=== PATIENT | male | born 1985 | race Caucasian/White ===

== ENCOUNTER 2025-06-01 13:26 | Emergency (ER) | payer OTHER ==
[~2025-06-01] VITALS: Ht 188 cm; Wt 86.2 kg
[~2025-06-01 13:26] MED LIST: B-1100 M1 PO; GABA300 PO
[2025-06-01 14:26] LABS: BASOPHILS ABSOLUTE AUTO 0.06 K/mm3 (0.00-0.23); BASOPHILS PERCENT AUTO 1 % (0-2); EOSINOPHILS ABSOLUTE AUTO 0.08 K/mm3 (0.00-0.68); EOSINOPHILS PERCENT AUTO 1 % (0-6); Hematocrit 49.2 % (37.0-53.0); Hemoglobin 17.2 g/dL (13.5-17.5); IMMATURE GRAN ABSOLUTE AUTO 0.02 K/mm3 (0.00-0.10); IMMATURE GRAN PERCENT AUTO 0 % (0-1); LYMPHOCYTES ABSOLUTE AUTO 1.77 K/mm3 (0.84-5.20); LYMPHOCYTES PERCENT AUTO 21 % (21-46); MONOCYTES ABSOLUTE AUTO 0.90 K/mm3 (0.16-1.47); MONOCYTES PERCENT AUTO 11 % (4-13); Mean Corpuscular HGB Conc 35.0 g/dL (31.5-36.5); Mean Corpuscular Volume 89 fL (80-100); NEUTROPHILS ABSOLUTE AUTO 5.57 K/mm3 (1.96-9.15); NEUTROPHILS PERCENT AUTO 66 % (41-73); NRBC ABSOLUTE 0.00 K/mm3 (0.00-0.02); NRBC Auto 0.0 /100 WBC (0.0-0.2); Platelet Count 192 K/mm3 (150-400); RDW Coefficient Variation 13.3 % (11.7-14.2); RDW Standard Deviation 43.5 fL (35.1-46.3)
[2025-06-01 14:47] LABS: Alanine Aminotransfer (ALT/SGP 158.0 U/L (12-78); Albumin, Blood 4.2 g/dL (3.4-5.0); Albumin/Globulin Ratio 1.0 (0.8-1.8); Anion Gap 14.0 mmol/L (3-11); Aspartate Aminotrans (AST/SGOT 185.0 U/L (12-37); Bilirubin, Total 1.7 mg/dL (0.1-1.0); Blood Urea Nitrogen 8.0 mg/dL (8-24); CO2, Blood 22.0 mmol/L (21-32); Calcium, Blood 8.9 mg/dL (8.5-10.1); Chloride, Blood 103.0 mmol/L (98-108); Creatinine, Blood 0.82 mg/dL (0.60-1.20); Ethanol (Alcohol), Blood, Med 294.0 mg/dL; Globulin, Blood 4.2 g/dL (2.2-4.0); Glucose, Blood 115.0 mg/dL (70-99); Potassium, Blood 3.9 mmol/L (3.5-5.5); Sodium, Blood 135.0 mmol/L (136-145); Total Protein, Blood 8.4 g/dL (6.4-8.2)
[2025-06-01] MEDS ORDERED: NS 1,000 ML IV SCH (15:15)
[2025-06-01] MEDS ORDERED: LORazepam 2 MG/ML 1ML Injection IV ONE (15:15)
[2025-06-01] MEDS ORDERED: Multivitamins 1 Tab PO ONE (15:15)
[2025-06-01] MEDS ORDERED: CHLO25 PO (15:57)
[2025-06-01 16:15] VITALS: BP 146/105
[2025-06-01 16:26] LABS: U Amphetamine Screen Not Detected; U Barbituate Screen Not Detected; U Benzodiazapine Screen Not Detected; U Buprenorphine Screen Not Detected; U Cannabinoids Screen Not Detected; U Cocaine Screen Not Detected; U Methadone Screen Not Detected; U Methamphetamine Screen Not Detected; U Opiates Screen Not Detected; U Oxycodone Screen Not Detected; U Phencyclidine Screen Not Detected
[2025-06-02] MEDS ORDERED: QUET25 PO ×2 (00:24)
== END 2025-06-01 16:26 | disposition home or self-care (01) ==
LOC: ER 13:26
PROVIDERS: Physician Assistant
DX: F10.129 Alcohol abuse with intoxication, unspecified (principal); Y90.8 Blood alcohol level of 240 mg/100 ml or more; R74.01 Elevation of levels of liver transaminase levels
CPT/HCPCS: 80053; 80320; 85025; 93005; 93010; A9270; J2060; J7030

== ENCOUNTER 2025-06-01 22:09 | Emergency (ER) | payer OTHER ==
[~2025-06-01] VITALS: Ht 188 cm; Wt 86.2 kg
[~2025-06-01 22:09] MED LIST changes: +CHLO25 PO
[2025-06-01] MEDS ORDERED: NS 1,000 ML IV SCH (23:35)
[2025-06-01] MEDS ORDERED: Ondansetron HCl 2 MG / ML 2ML Vial IV ONE (23:40)
[2025-06-02] MEDS ORDERED: QUET25 PO ×2 (00:24→00:46)
[2025-06-02 01:00] VITALS: BP 123/81
== END 2025-06-02 01:13 | disposition home or self-care (01) ==
LOC: ER 22:09
DX: F10.239 Alcohol dependence with withdrawal, unspecified (principal); Z79.899 Other long term (current) drug therapy; Y90.8 Blood alcohol level of 240 mg/100 ml or more; R74.01 Elevation of levels of liver transaminase levels
CPT/HCPCS: 80053; 80320; 85025; 93005; 93010; 96361; 96374; 96375; 96376; 99285-25; A9270; J2060; J2405; J2560; J7030

== ENCOUNTER 2025-06-19 19:49 | Emergency (ER) | payer OTHER ==
[~2025-06-19] VITALS: Ht 188 cm; Wt 86.2 kg
[~2025-06-19 19:49] MED LIST changes: +QUET25 PO
[2025-06-19 21:04] LABS: BASOPHILS ABSOLUTE AUTO 0.13 K/mm3 (0.00-0.23); BASOPHILS PERCENT AUTO 2 % (0-2); EOSINOPHILS ABSOLUTE AUTO 0.35 K/mm3 (0.00-0.68); EOSINOPHILS PERCENT AUTO 5 % (0-6); Hematocrit 44.7 % (37.0-53.0); Hemoglobin 15.3 g/dL (13.5-17.5); IMMATURE GRAN ABSOLUTE AUTO 0.13 K/mm3 (0.00-0.10); IMMATURE GRAN PERCENT AUTO 2 % (0-1); LYMPHOCYTES ABSOLUTE AUTO 2.73 K/mm3 (0.84-5.20); LYMPHOCYTES PERCENT AUTO 38 % (21-46); MONOCYTES ABSOLUTE AUTO 0.66 K/mm3 (0.16-1.47); MONOCYTES PERCENT AUTO 9 % (4-13); Mean Corpuscular HGB Conc 34.2 g/dL (31.5-36.5); Mean Corpuscular Volume 91 fL (80-100); NEUTROPHILS ABSOLUTE AUTO 3.13 K/mm3 (1.96-9.15); NEUTROPHILS PERCENT AUTO 44 % (41-73); NRBC ABSOLUTE 0.00 K/mm3 (0.00-0.02); NRBC Auto 0.0 /100 WBC (0.0-0.2); Platelet Count 359 K/mm3 (150-400); RDW Coefficient Variation 15.4 % (11.7-14.2); RDW Standard Deviation 51.8 fL (35.1-46.3)
[2025-06-19 21:17] LABS: Prothrombin Time Results 9.9 Sec (9.7-11.5)
[2025-06-19 21:25] LABS: Alanine Aminotransfer (ALT/SGP 53.0 U/L (12-78); Albumin, Blood 3.7 g/dL (3.4-5.0); Albumin/Globulin Ratio 0.9 (0.8-1.8); Anion Gap 9.0 mmol/L (3-11); Aspartate Aminotrans (AST/SGOT 40.0 U/L (12-37); Bilirubin, Total 0.3 mg/dL (0.1-1.0); Blood Urea Nitrogen 12.0 mg/dL (8-24); CO2, Blood 22.0 mmol/L (21-32); Calcium, Blood 8.3 mg/dL (8.5-10.1); Chloride, Blood 114.0 mmol/L (98-108); Creatinine, Blood 0.8 mg/dL (0.60-1.20); Ethanol (Alcohol), Blood, Med 359.0 mg/dL; Globulin, Blood 4.1 g/dL (2.2-4.0); Glucose, Blood 88.0 mg/dL (70-99); Potassium, Blood 4.1 mmol/L (3.5-5.5); Sodium, Blood 141.0 mmol/L (136-145); Total Protein, Blood 7.8 g/dL (6.4-8.2)
[2025-06-19 22:53] VITALS: BP 119/86
== END 2025-06-19 22:54 | disposition home or self-care (01) ==
LOC: ER 19:49
PROVIDERS: Student in an Organized Health Care Education/Training Program
DX: F10.129 Alcohol abuse with intoxication, unspecified (principal); Y90.8 Blood alcohol level of 240 mg/100 ml or more; Z79.899 Other long term (current) drug therapy
CPT/HCPCS: 80053; 80320; 85025; 85610; 85730; 93005; 93010; 99285-25

== ENCOUNTER 2025-07-02 22:26 | Inpatient (IN) | payer OTHER ==
[~2025-07-02] VITALS: Ht 188 cm; Wt 88.4 kg
[2025-07-02 22:50] LABS: BASOPHILS ABSOLUTE AUTO 0.09 K/mm3 (0.00-0.23); BASOPHILS PERCENT AUTO 1 % (0-2); EOSINOPHILS ABSOLUTE AUTO 0.24 K/mm3 (0.00-0.68); EOSINOPHILS PERCENT AUTO 3 % (0-6); Hematocrit 45.2 % (37.0-53.0); Hemoglobin 15.9 g/dL (13.5-17.5); IMMATURE GRAN ABSOLUTE AUTO 0.04 K/mm3 (0.00-0.10); IMMATURE GRAN PERCENT AUTO 1 % (0-1); LYMPHOCYTES ABSOLUTE AUTO 3.46 K/mm3 (0.84-5.20); LYMPHOCYTES PERCENT AUTO 43 % (21-46); MONOCYTES ABSOLUTE AUTO 0.88 K/mm3 (0.16-1.47); MONOCYTES PERCENT AUTO 11 % (4-13); Mean Corpuscular HGB Conc 35.2 g/dL (31.5-36.5); Mean Corpuscular Volume 87 fL (80-100); NEUTROPHILS ABSOLUTE AUTO 3.31 K/mm3 (1.96-9.15); NEUTROPHILS PERCENT AUTO 41 % (41-73); NRBC ABSOLUTE 0.00 K/mm3 (0.00-0.02); NRBC Auto 0.0 /100 WBC (0.0-0.2); Platelet Count 199 K/mm3 (150-400); RDW Coefficient Variation 14.9 % (11.7-14.2); RDW Standard Deviation 49.0 fL (35.1-46.3)
[2025-07-02] MEDS ORDERED: HYDHCL25 PO (22:54)
[2025-07-02 23:10] LABS: Salicylate 3.8 mg/dL (2.8-20.0)
[2025-07-02 23:27] LABS: Alanine Aminotransfer (ALT/SGP 49 U/L (12-78); Albumin, Blood 4.3 g/dL (3.4-5.0); Albumin/Globulin Ratio 1.0 (0.8-1.8); Anion Gap 14 mmol/L (3-11); Aspartate Aminotrans (AST/SGOT 47 U/L (12-37); Bilirubin, Total 0.5 mg/dL (0.1-1.0); Blood Urea Nitrogen 9 mg/dL (8-24); CO2, Blood 20 mmol/L (21-32); Calcium, Blood 8.6 mg/dL (8.5-10.1); Chloride, Blood 109 mmol/L (98-108); Creatinine, Blood 0.95 mg/dL (0.60-1.20); Ethanol (Alcohol), Blood, Med 402 mg/dL; Globulin, Blood 4.1 g/dL (2.2-4.0); Glucose, Blood 98 mg/dL (70-99); Potassium, Blood 3.7 mmol/L (3.5-5.5); Sodium, Blood 139 mmol/L (136-145); Total Protein, Blood 8.4 g/dL (6.4-8.2)
[2025-07-02 23:31] LABS: Acetaminophen, Random <2.0 ug/mL (10.0-30.0)
[2025-07-02 23:59] LABS: Source, Urine Clean Catch
[2025-07-03 00:05] LABS: Bilirubin, Urine Neg (Neg); Glucose Qualitative, Urine Neg (Neg); Ketones, Urine Neg (Neg); Leukocyte Esterase, Urine Neg (Neg); Protein, Urine Neg (Neg); Specific Gravity, Urine 1.010 (1.003-1.022); Urobilinogen, Urine NORM (Normal)
[2025-07-03 00:20] LABS: U Amphetamine Screen Not Detected; U Barbituate Screen Not Detected; U Benzodiazapine Screen DETECTED; U Buprenorphine Screen Not Detected; U Cannabinoids Screen Not Detected; U Cocaine Screen Not Detected; U Methadone Screen Not Detected; U Methamphetamine Screen Not Detected; U Opiates Screen Not Detected; U Oxycodone Screen Not Detected; U Phencyclidine Screen Not Detected
[2025-07-03 00:21] LABS: Color, Urine Pale Yellow (P-Yellow)
[2025-07-03] MEDS ORDERED: Ondansetron 4 MG SoluTab SL ONE (10:35)
[2025-07-03] MEDS ORDERED: Ondansetron HCl 2 MG / ML 2ML Vial IV ONE (10:35)
[2025-07-03 18:48] VITALS: BP 137/89
[2025-07-03 19:00] VITALS: BP 139/99
[2025-07-03 20:00] VITALS: BP 131/96
--- NOTE | 2025-07-03 20:00 | NUR ---
ASSUMPTION OF CARE: ASSUMED CARE AT START OF SHIFT (1899). PT IS DOING WELL AND RESTING IN BED. ALERT AND FOLLOWING COMMANDS. CIWA SCOREA HAVE BEEN >10. PT STATES THEY HAVE A SLIGHT HEADACHE AND NAUSEA BUT NO CP OR SOB AT THIS TIME. LUNG SOUNDS ARE CLEAR AND EQUAL BILATERALLY, SPO2 >95 ON RA. SINUS RYTHM WITH SBP: 110-120'S MAP >65 HR: 70'S. PERIPHERAL IV IN RAC. PT IS ABLE TO AMBULATE AND USE BATHROOM WITHOUT ASSISTANCE. LINES AND CORDS PLACED OUT OF REACH. CALL LIGHT PLACED WITHIN REACH.
[2025-07-03 21:00] VITALS: BP 125/83
[2025-07-03 22:00] VITALS: BP 128/87
[2025-07-03] MEDS ORDERED: Metoprolol Tartrate 1 MG/ML 5 ML VIAL IV PRN (22:25)
[2025-07-03 23:00] VITALS: BP 118/83
[2025-07-04] VITALS (21 sets, daily range): BP systolic 111–152; BP diastolic 75–105
[2025-07-04 03:51] LABS: BASOPHILS ABSOLUTE AUTO 0.04 K/mm3 (0.00-0.23); BASOPHILS PERCENT AUTO 1 % (0-2); EOSINOPHILS ABSOLUTE AUTO 0.31 K/mm3 (0.00-0.68); EOSINOPHILS PERCENT AUTO 5 % (0-6); Hematocrit 44.7 % (37.0-53.0); Hemoglobin 15.7 g/dL (13.5-17.5); IMMATURE GRAN ABSOLUTE AUTO 0.02 K/mm3 (0.00-0.10); IMMATURE GRAN PERCENT AUTO 0 % (0-1); LYMPHOCYTES ABSOLUTE AUTO 1.92 K/mm3 (0.84-5.20); LYMPHOCYTES PERCENT AUTO 33 % (21-46); MONOCYTES ABSOLUTE AUTO 0.58 K/mm3 (0.16-1.47); MONOCYTES PERCENT AUTO 10 % (4-13); Mean Corpuscular HGB Conc 35.1 g/dL (31.5-36.5); Mean Corpuscular Volume 90 fL (80-100); NEUTROPHILS ABSOLUTE AUTO 3.01 K/mm3 (1.96-9.15); NEUTROPHILS PERCENT AUTO 51 % (41-73); NRBC ABSOLUTE 0.00 K/mm3 (0.00-0.02); NRBC Auto 0.0 /100 WBC (0.0-0.2); Platelet Count 160 K/mm3 (150-400); RDW Coefficient Variation 14.9 % (11.7-14.2); RDW Standard Deviation 49.1 fL (35.1-46.3)
[2025-07-04 04:15] LABS: Alanine Aminotransfer (ALT/SGP 41.0 U/L (12-78); Albumin, Blood 3.6 g/dL (3.4-5.0); Albumin/Globulin Ratio 1.0 (0.8-1.8); Anion Gap 9.0 mmol/L (3-11); Aspartate Aminotrans (AST/SGOT 42.0 U/L (12-37); Bilirubin, Total 1.3 mg/dL (0.1-1.0); Blood Urea Nitrogen 13.0 mg/dL (8-24); CO2, Blood 23.0 mmol/L (21-32); Calcium, Blood 8.4 mg/dL (8.5-10.1); Chloride, Blood 106.0 mmol/L (98-108); Creatinine, Blood 0.86 mg/dL (0.60-1.20); Globulin, Blood 3.5 g/dL (2.2-4.0); Glucose, Blood 90.0 mg/dL (70-99); Potassium, Blood 3.4 mmol/L (3.5-5.5); Sodium, Blood 135.0 mmol/L (136-145); Total Protein, Blood 7.1 g/dL (6.4-8.2)
--- NOTE | 2025-07-04 06:06 | NUR ---
SHIFT SUMMARY: PT IS DOING WELL AND RESTING IN BED. THEY WERE ABLE TO SLEEP MOST OF THE NIGHT. CIWA SCORES HANVE RANGED FROM 10-13 THROUGHOUT THE SHIFT. NO ACUTE CHANGES THROUGHOUT THE SHIFT. VITAL SIGNS HAVE BEEN STABLE. POTASSIUM WAS LOW AND IS BEING REPLACED PER EMR ORDERS. PT HAS BEEN ABLE TO GET UP TO USE BATHROOM VIA 1-PERSON ASSIST. LINES AND CORDS PLACED OUT OF REACH. CALL LIGHT PLACED WITHIN REACH AND PT WILL PRESS LIGHT WHEN THEY NEED ASSSITANCE.
[2025-07-04] MEDS ORDERED: Enoxaparin 40 MG/0.4 ML SYR SC SCH (09:00)
[2025-07-04] MEDS ORDERED: Multivitamins 1 Tab PO SCH (09:00)
--- NOTE | 2025-07-04 17:51 | NUR ---
SHIFT NOTE: PT A/OX4 POLITE AND ABLE TO MAKE HIS NEEDS KNOWN. HIS CIWA'S HAVE REMAINED 8-12 AND RESPONDING TO LIBRIUM AND ATIVAN PER EMAR. HE IS ON RA WITH CLEAR LUNG LOPEZ. HE HAS BEEN IN SINUS/SINUS ARRHYTHMIA T/O SHIFT WITH STABLE BP. HE DENIES PAIN. HE INDEPENDENTLY USES THE BATHROOM AND PERFORMS ADLS. CALL LIGHT IN REACH, CARE CONTINUES.
--- NOTE | 2025-07-04 20:37 | NUR ---
ASSUMPTION OF CARE: ASSUMED CARE AT START OF SHIFT (1899). REPORT RECIEVED FROM DAY SHIFT RN. PT IS DOING WELL AND RESTING IN BED. PT ALERT AND FOLLOWING COMMANDS. CIWA SCORES RANGING FROM 8-13 THROUGH OUT THE DAY. LUNG SOUNDS ARE CLEAR AND EQUAL BILATERALLY. SINUS RYTHM WITH SBP: 130'S MAP >65 AND HR: 70-90'S. IV: PERIPHERAL IN RAC AND R FOREARM. PT ABLE TO STAND AND PERFORM ADL'S WITHOUT ASSISTANCE. LINES AND CORDS PLACED OUT OF REACH. CALL LIGHT PLACED WITHIN REACH AND PT WILL PRESS CALL BUTTON WHEN THEY NEED ASSISTANCE.
--- NOTE | 2025-07-05 | NUR ---
AMA: PT STATES THAT THEY WERE FEELING BETTER AND THEIR ETOH WITHDRAWL SYMPTOMS HAVE RESOLVED. PT STATES THAT THEY WANT TO LEAVE THE HOSPITAL TO GO HOME. PT IS A&O X4 GCS:15. CALLED DR. QUEZADA TO TELL HIM THAT THE PT WANTED TO LEAVE AMA. THE RISKS OF LEAVING AMA AND THE BENEFITS OF STAYING IN HOSPITAL WERE DISCUSS WITH THE PT. PT SIGNED THE AMA FORM. PT CALLLED THEIR FRIEND TO COME PICK THEM UP. ALL PT BELONGINGS WERE GIVEN BACK TO THE PT. PT ABLE TO WALK WITHOUT ASSISTANCE AND WAS ESCORTED TO ER [facility]TER[facility] WHERE THEY MET UP WITH THEIR FRIEND/RIDE AT 2350 ON 07/04/2025.
== END 2025-07-04 23:47 | disposition left against medical advice (07) | DRG 894 ==
LOC: ER 22:26 → EOR 22:27 → ICUE 07-03 13:46
PROVIDERS: Student in an Organized Health Care Education/Training Program; ADMIT Emergency Medicine
DX: F10.230 Alcohol dependence with withdrawal, uncomplicated (principal); R45.851 Suicidal ideations; E87.20 Acidosis, unspecified; F32.A Depression, unspecified; F17.210 Nicotine dependence, cigarettes, uncomplicated; E87.6 Hypokalemia; E80.6 Other disorders of bilirubin metabolism; Z53.29 Procedure and treatment not carried out because of patient's decision for other reasons; Z79.899 Other long term (current) drug therapy
CPT/HCPCS: 36415; 80053; 80320; 81003; 82010; 83605; 85025; 99285; A9270; G0378; G0480; J1650; J3411; J3480; J7050; J7120